=== PATIENT | male | born 1985 | race Caucasian/White ===

== ENCOUNTER 2024-04-24 18:48 | Emergency (ER) | payer SELFPAY ==
[~2024-04-24] VITALS: Ht 170.2 cm; Wt 70.0 kg
[2024-04-24 18:52] VITALS: O2SAT 98
[2024-04-24] MEDS: SODIUM CHLORIDE 0.9% 1,000 ML IV ONE (19:45)
[2024-04-24 20:28] LABS: BASOPHILS % 0.5 % (0.0-2.0); EOSINOPHILS % 0.2 % (0.0-5.0); HEMATOCRIT. 47.4 % (42.0-52.0); HEMOGLOBIN. 16.6 g/dL (14.0-18.0); LYMPHOCYTES % 7.7 % (20.0-50.0); MEAN CORPUSCULAR HEMOGLOBIN 33.8 pg (28.0-32.0); MEAN CORPUSCULAR HGB CONC 35.1 g/dL (31.0-37.0); MEAN CORPUSCULAR VOLUME 96.2 fL (80.0-94.0); MEAN PLATELET VOLUME 9.5 fl (7.4-10.4); MONOCYTES % 5.8 % (2.0-8.0); NEUTROPHILS % 85.8 % (40.0-76.0); PLATELET 187 x1000/uL (130-400); RED BLOOD CELL COUNT 4.93 mill/uL (4.7-6.1); RED CELL DISTRIBUTION WIDTH 13.5 % (11.6-14.6); WHITE BLOOD COUNT 14.3 x1000/uL (4.5-11.0)
[2024-04-24 20:30] LABS: CHLORIDE 110 mEq/L (98-107); POTASSIUM 4.4 mEq/L (3.5-5.1); SODIUM 143 mEq/L (136-145)
[2024-04-24 20:31] LABS: CARBON DIOXIDE 22 mEq/L (21-32)
[2024-04-24 20:32] LABS: CALCIUM 9.9 mg/dL (8.7-10.4)
[2024-04-24 20:37] LABS: GLUCOSE 106 mg/dL (70-105); TROPONIN I HIGH SENSITIVITY 13 ng/L (3.0-53); UREA NITROGEN BLOOD 12 mg/dL (9-23)
[2024-04-24] MEDS: LIDOCAINE HCL 1% 20ML VIAL INFIL ONE (20:55)
[2024-04-24 22:00] VITALS: BP 121/75; PULSE 100; RESP 19; TEMP 36.22512; O2SAT 100
[2024-04-24] MEDS ORDERED: BACI1OIN7 TP (22:13)
[2024-04-24] MEDS ORDERED: TOPUD MT (22:13)
[2024-04-24 22:39] LABS: CREATINE KINASE 254 IU/L (46-171)
== END 2024-04-24 22:50 | disposition home or self-care (01) ==
LOC: ER 18:48
DX: T75.4XXA Electrocution, initial encounter (principal); Z98.890 Other specified postprocedural states; W86.8XXA Exposure to other electric current, initial encounter; Y93.89 Activity, other specified; Y92.89 Other specified places as the place of occurrence of the external cause; Y99.8 Other external cause status
CPT/HCPCS: 80048; 82550; 85025; 84484; 36415; 93005; 99284; J3490; J7030; Z7610 ×3